=== PATIENT | female | born 1975 | race Caucasian/White ===

== ENCOUNTER 2024-10-03 21:18 | Inpatient (IN) | payer SELFPAY ==
[2024-10-03] VITALS (10 sets, daily range): BP systolic 103–131; BP diastolic 58–101; PULSE 88–120; RESP 13–24; TEMP 36.6; O2SAT 95–100; BMI 20.1
--- NOTE | 2024-10-03 21:36 | XRR_ITS ---
PROCEDURE INFORMATION: Exam: XR Chest Exam date and time: 10/03/2024 9:59 PM Age: 49 years old Clinical indication: Chest pressure; Patient HX: C/O chest pain. Afib on monitor. ; Additional info: Chest pain, a-fib TECHNIQUE: Imaging protocol: Radiologic exam of the chest. Views: 1 view. COMPARISON: No relevant prior studies available. FINDINGS: Lungs: Unremarkable. No consolidation. Likely nipple shadow in the right infrahilar distribution Pleural spaces: Unremarkable. No pleural effusion. No pneumothorax. Heart/Mediastinum: Heart appears prominent, though accentuated by patient positioning and portable technique. Vasculature: Mild atherosclerotic aortic calcifications. Bones/joints: Dextroscoliosis of the thoracic spine with multilevel degenerative changes. XR/XR chest 1V portable [id number] IMPRESSION: No acute findings.
--- NOTE | 2024-10-03 21:36 | ECG_ITS ---
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1975 Requested By: Lisa Castro Order Number: [id number] Soledad MD: DONAVON ESTEVES Measurements Intervals [place] Rate: 122 P: 0 TN: 0 QRS: 45 QRSD: 102 T: 3 QT: 309 QTc: 442 Interpretive Statements ATRIAL FIBRILLATION WITH RAPID VENTRICULAR RESPONSE MODERATE VOLTAGE CRITERIA FOR LVH, CONSIDER NORMAL VARIANT [MEETS CRITERIA IN ONE OF: R(aVL), S(V1), R(V5), R(V5/V6)+S(V1)] NONSPECIFIC T-WAVE ABNORMALITY ABNORMAL RHYTHM ECG No previous ECG available for comparison Electronically Signed On 10-05-2024 23:14:18 ETHICS MANAGER by DONAVON ESTEVES [id number]
--- NOTE | 2024-10-03 21:38 | CTR_ITS ---
PROCEDURE INFORMATION: Exam: CT Head Without Contrast Exam date and time: 10/03/2024 10:29 PM Age: 49 years old Clinical indication: Patient HX: C/O dizziness; Additional info: New onset a-fib, dizziness TECHNIQUE: Imaging protocol: Computed tomography of the head without contrast. Radiation optimization: All CT scans at this facility use at least one of these dose optimization techniques: automated exposure control; mA and/or kV adjustment per patient size (includes targeted exams where dose is matched to clinical indication); or iterative reconstruction. COMPARISON: No relevant prior studies available. RADIATION DOSE METRICS: Total DLP (mGy-cm): 980.24 FINDINGS: Brain: Likely prominent perivascular space inferior to the right basal ganglia. No hemorrhage. Unremarkable white matter. No mass effect. Cerebral ventricles: No ventriculomegaly. Paranasal sinuses: Visualized sinuses are unremarkable. No fluid levels. Mastoid air cells: Visualized mastoid air cells are well aerated. Bones: Unremarkable. No acute fracture. Soft tissues: Unremarkable. CT/CT head wo con* [id number] IMPRESSION: No acute intracranial abnormality.
--- NOTE | 2024-10-03 21:39 | ED_ITS ---
HPI - Arrhythmia/Palpitations 2 General: Chief Complaint: Arrhythmia/Palpitations Stated Complaint: AFIB Time Seen by Provider: 10/03/24 21:24 History of Present Illness: This is a 49-year-old female that presents to the emergency department with new onset atrial fibrillation RVR. In route via EMS patient was noted with heart rates in the 140s to 150s. Patient was treated with Cardizem and brought her heart rate back down to the 120s. During the emergency department patient relays a story of palpitations for the last 36 hours. She says it woke her up in the middle the night. She was having a very vivid dream that she was being sucked into the ground . Patient reports that she woke abruptly and had chest heaviness and shortness of breath. Patient reports that she was able to calm herself down and she felt like she was getting a little bit better and she decided to treat herself at home. She has been taking lisinopril for hypertension. She took an extra dose. She tried to withhold from drinking alcohol and smoking. She is an every day tobacco user as well as everyday drinker. She reports 6 glasses of wine a day. Patient recently moved from [place]. Has not established primary care as of yet. She does note being told of a murmur previously but never had it evaluated. 4 years ago she had some palpitations but never had it evaluated. Related Data Allergies Allergy/AdvReac Type Severity Reaction Status Date / Time No Known Allergies Allergy Verified 10/04/24 00:25 Review of Systems 2 General: Reports: 10 or more systems reviewed and unremarkable except in HPI and below PFSH ED 2 PFSH: Medical History Tobacco use disorder Alcohol use disorder Hypertension Surgical History History of toe surgery History of section Family History Father Valvular heart disease Social History Smoking and tobacco/nicotine status: current every day tobacco/nicotine user Alcohol intake: current Substance/Drug Use: never Physical Exam 2 Const: COMMON NORMALS: no acute distress, patient oriented x3 and alert G ENERAL APPEARANCE: cooperative ORIENTATION/CONSCIOUSNESS: Yes awake, Yes oriented to person, Yes oriented to place and Yes oriented to time HENMT: COMMON NORMALS: normocephalic and atraumatic HEAD & SCALP: n ormocephalic and atraumatic FACE & SINUS: normal facial exam MOUTH: Normal oral and palatal mucosa present THROAT: posterior oropharynx normal Eye: COMMON NORMALS: Equal, round and reactive pupils present, EOMs intact bilaterally, conjunctivae normal and no scleral icterus GENERAL EYE: a ppearance normal, both eyes and all related structures ALIGNMENT: Yes alignment normal PERIORBITAL: periorbital findings normal CONJUNCTIVA: Yes conjunctivae normal PUPIL: Yes Equal, round and reactive pupils present Neck/C-Spine: COMMON NORMALS: full ROM GENERAL: Yes normal visual inspection Lymph: LYMPHATIC: no lymphadenopathy noted Chest: COMMONS NORMALS: normal inspection of the chest Breast/axilla inspection: Yes no chest deformity, asymmetry, normal contours, no nodules, masses, tenderness Resp: COMMON NORMALS: normal respiratory effort, No retractions, No use of accessory muscles and clear to auscultation bilaterally EFFORT & INSPECTION: Yes able to speak in complete sentences and Yes symmetric chest movement A USCULTATION: clear to auscultation bilaterally Cardio: COMMON NORMALS: Peripheral pulses 2+ throughout RATE: tachycardic RHYTHM: abnormal rhythm irregularly irregular HEART SOUNDS: Murmur heart sound present continuous Location: base and left sternal border Characteristics: blowing PERIPHERAL PULSES: Peripheral pulses 2+ throughout GI: COMMON NORMALS: Normal to inspection, nondistended, normoactive bowel sounds present, Soft to palpation, non-tender and No hepatosplenomegaly present INSPECTION: Yes normal to inspection AUSCULTATION: Yes normoactive bowel sounds PALPATION: Yes Soft to palpation and Yes No hepatosplenomegaly present RECTAL EXAM: deferred Extremity: COMMON NORMALS: normal to inspection GENERAL: Yes normal exam except as noted Neuro: COMMON NORMALS: patient oriented x3 SENSORIUM/ORIENTATION: Yes alert, Yes oriented to person, Yes oriented to place and Yes oriented to time CRANIAL NERVES: Yes CN normal except as noted Psych: COMMON NORMALS: mental status grossly normal, Normal thought process present, cooperative, activity/motor behavior normal, denies homicidal ideation and denies suicidal ideation THOUGHT PROCESS: Normal thought process present Skin: COMMON NORMALS: no rashes or lesions noted, no wounds and turgor normal GENERAL SKIN EXAM: no rashes or lesions noted and turgor normal Course 2 Vital Signs: Vital signs: Vital Signs Temperature 98 F 10/03/24 21:24 Pulse Rate 128 H 10/04/24 00:00 Respiratory Rate 17 10/04/24 00:00 Blood Pressure 108/71 10/04/24 00:00 Pulse Oximetry 98 10/04/24 00:00 MDM - Arrhythmia/Palpitations Medical Decision Making Patient evaluated in the emergency department today for A-fib RVR. New onset. Exam revealed clear lung vickers but blowing murmur. She was treated in rounds and again here in the emergency department with Cardizem. She slowed her heart rate to the 110s. Heart rate began to creep back up and she was started on a Cardizem drip. Patient has an elevated BNP of 5000. When to treat her with Lasix. She underwent a laboratory evaluation that included CBC and CMP which were largely unremarkable. Chest x-ray was read as normal. EKG performed at 2125 reveals atrial fibrillation with RVR at a rate of 120. No ectopy, ST elevation. Case reviewed with Dr. Carmona. Patient has a new murmur and new onset A-fib RVR. I do not think she is capable of going home for ongoing management. I spoke with Dr. Munoz for admission. He recommended speaking with cardiology. Dr. Beebe was contacted who recommends admission overnight for echo. He will follow the echo. Recommended Lasix. Dr. Munoz notified Lab Data 10/03/24 22:12 10/03/24 22:12 Radiology Impressions Chest X-Ray 10/03/24 21:36 IMPRESSION: No acute findings. Head CT 10/03/24 21:38 IMPRESSION: No acute intracranial abnormality. Laboratory Results WBC 6.26 10^3/uL (3.29-11.43) 10/03/24 22:12 RBC 4.11 10^6/uL (3.85-5.65) 10/03/24 22:12 Hgb 13.90 g/dL (11.27-16.99) 10/03/24 22:12 Hct 42.1 % (36-47) 10/03/24 22:12 MCV 102.4 fl (85-98) H 10/03/24 22:12 MCH 33.8 pg (27-33) H 10/03/24 22:12 MCHC 33.0 g/dL (30-55) 10/03/24 22:12 RDW 12.6 % (12.1-15.1) 10/03/24 22:12 Plt Count 231 10^3/cmm (157-399) 10/03/24 22:12 MPV 10.9 fL (7.4-10.4) H 10/03/24 22:12 Neut % (Auto) 55.3 % 10/03/24 22:12 Lymph % (Auto) 30.8 % 10/03/24 22:12 Titus % (Auto) 11.7 % 10/03/24 22:12 Eos % (Auto) 1.4 % 10/03/24 22:12 Baso % (Auto) 0.6 % 10/03/24 22:12 Neut # (Auto) 3.46 10^3/uL (1.8-7.7) 10/03/24 22:12 Lymph # (Auto) 1.9 10^3/uL (0.8-4.8) 10/03/24 22:12 Titus # (Auto) 0.7 10^3/uL (0.2-0.9) 10/03/24 22:12 Eos # (Auto) 0.1 10^3/uL (0.0-0.8) 10/03/24 22:12 Baso # (Auto) 0.0 10^3/uL (0.0-0.1) 10/03/24 22:12 Nucleated RBC % (auto) 0 % 10/03/24 22:12 Nucleated RBCs # 0.0 /100WBC 10/03/24 22:12 Sodium 135 mmol/L (136-145) L 10/03/24 22:12 Potassium 4.1 mmol/L (3.5-5.1) 10/03/24 22:12 Chloride 100 mmol/L (98-107) 10/03/24 22:12 Carbon Dioxide 21 mmol/L (22-29) L 10/03/24 22:12 Anion Gap 18.1 (5-19) 10/03/24 22:12 BUN 19 mg/dL (6-20) 10/03/24 22:12 Creatinine 0.8 mg/dL (0.5-0.9) 10/03/24 22:12 GFR Calculation 75.9 mL/min (90-130) L 10/03/24 22:12 Glucose 99 mg/dL (65-115) 10/03/24 22:12 Calculated Osmolality 282 mOsm/kg (285-295) L 10/03/24 22:12 Calcium 9.5 mg/dL (8.5-10.5) 10/03/24 22:12 Magnesium 1.9 mg/dL (1.7-2.3) 10/03/24 22:12 Total Bilirubin 0.2 mg/dL (0.15-1.2) 10/03/24 22:12 AST 20 U/L (0-32) 10/03/24 22:12 ALT 13 U/L (0-33) 10/03/24 22:12 Alkaline Phosphatase 78 U/L (35-105) 10/03/24 22:12 Troponin T Baseline 9 ng/L (0-10) 10/03/24 22:12 NT-Pro-B Natriuret Pep 4665 pg/mL (0-125) H 10/03/24 22:12 Total Protein 6.7 g/dL (6.6-8.7) 10/03/24 22:12 Albumin 4.4 g/dL (3.5-5.2) 10/03/24 22:12 Globulin 2.3 g/dL (1.3-4.6) 10/03/24 22:12 Ethyl Alcohol < 10 mg/dL (0-10) 10/03/24 22:12 All radiology interpretation(s) finalized by discharge Discharge Plan Discharge Patient Disposition: Admitted As Inpatient Clinical Impression: Atrial fibrillation, Cardiac murmur, Heart failure Condition: Stable Coding Level of Care Code ED Hat Finishing Materials Preparer for Amber Tucker
[2024-10-03] MEDS: dilTIAZem 5 mg/mL SDV 5 mL 10 MG IVP (21:51)
[2024-10-03] MEDS: sodium chloride 0.9% 500 ML 999 ML IV (21:52)
[2024-10-03 22:19] LABS: Basophils % 0.6 %; Eosinophils # 0.1 10^3/uL (0.0-0.8); Eosinophils % 1.4 %; Hematocrit 42.1 % (36-47); Lymphocytes # 1.9 10^3/uL (0.8-4.8); Lymphocytes % 30.8 %; Mean Corpuscular Hemoglobin 33.8 pg (27-33); Mean Corpuscular Volume 102.4 fl (85-98); Mean Platelet Volume 10.9 fL (7.4-10.4); Monocytes # 0.7 10^3/uL (0.2-0.9); Monocytes % 11.7 %; Neutrophils # 3.46 10^3/uL (1.8-7.7); Neutrophils % 55.3 %; Nucleated Red Blood Cells % 0 %; Platelet Count 231 10^3/cmm (157-399); Red Blood Count 4.11 10^6/uL (3.85-5.65); Red Cell Distribution Width 12.6 % (12.1-15.1); White Blood Count 6.26 10^3/uL (3.29-11.43)
[2024-10-03 22:39] LABS: Troponin(5th) Baseline 9 ng/L (0-10)
[2024-10-03 23:06] LABS: Alanine Aminotransferase 13 U/L (0-33); Albumin Level 4.4 g/dL (3.5-5.2); Alcohol Level < 10 mg/dL (0-10); Alkaline Phosphatase 78 U/L (35-105); Anion Gap 18.1 (5-19); Aspartate Amino Transferase 20 U/L (0-32); Blood Urea Nitrogen 19 mg/dL (6-20); Calcium 9.5 mg/dL (8.5-10.5); Carbon Dioxide 21 mmol/L (22-29); Chloride 100 mmol/L (98-107); Creatinine Clr Calc Pharmacy 66.4302; Globulin 2.3 g/dL (1.3-4.6); Glomerular Filtration Rate 75.9 mL/min (90-130); Glucose 99 mg/dL (65-115); NT Pro B Type Natriuretic Pept 4665 pg/mL (0-125); Osmolality Calculated 282 mOsm/kg (285-295); Potassium 4.1 mmol/L (3.5-5.1); Sodium 135 mmol/L (136-145); Total Bilirubin 0.2 mg/dL (0.15-1.2); Total Protein 6.7 g/dL (6.6-8.7)
--- NOTE | 2024-10-03 23:54 | P.HP_ITS ---
Providers/Chief Complaint 2 Chief Complaint: AFIB History of Present Illness Nona Casas is a 49 year old female with a past medical history significant for hypertension, cardiac murmur, COVID-19, and arthritis who presents to the emergency department with palpitations. Patient reports onset yesterday. She describes her symptoms as constant. Endorses associated shortness of breath. Denies cough, peripheral edema, PND or orthopnea. Reports exertion worsens symptoms. Denies other alleviating or aggravating factors. Denies fevers, chills, nausea or emesis. In the emergency department, patient was found to have atrial fibrillation with left ventricular rate. She denies prior known history of atrial fibrillation. She does endorse intermittent palpitations since her COVID-19 infection in 2020. She also endorses a history of murmur but denies prior workup. She does endorse her father having mitral valvulopathies requiring at least 2 interventions on his valve. He is now , he at age 71. Of note, patient also endorses significant alcohol use. We discussed alcohol effects on atrial fibrillation. Review of Systems 2 Narrative: A complete review of systems was obtained and is negative except as stated in HPI. PFSH Acute 2 PFSH: Medical History Tobacco use disorder Alcohol use disorder Hypertension Surgical History History of toe surgery History of section Family History Father Valvular heart disease Social History Smoking and tobacco/nicotine status: current every day tobacco/nicotine user Alcohol intake: current Substance/Drug Use: never Vitals/I&O/Wt Last Vital Signs Temp 98 F 10/03/24 21:24 Pulse 94 10/03/24 22:45 Resp 16 10/03/24 22:45 BP 120/63 10/03/24 22:45 Pulse Ox 97 10/03/24 22:45 10/03/24 10/03/24 10/04/24 14:59 22:59 06:59 Intake Total 0 / 0 Balance 0 / 0 Weight last 48 hrs Weight 49.895 kg Physical Exam 2 Narrative: General: Patient is awake and alert. Pleasant. Head: Normocephalic. Atraumatic. EOM intact. Neck: No JVD. Cardiovascular: No gallops. 3+ murmur. Tachycardic with irregularly irregular rhythm. Lungs: Clear to auscultation, no use of accessory muscles, no crackles or wheezes. Skin: No jaundice. No rashes. Abdomen: Normal bowel sounds, abdomen soft and nontender. Genito Urinary: Genital exam not performed since complaints not related. Rectal: Rectal exam not performed since no symptoms indicated blood loss. Extremities: No cyanosis or clubbing. Musculoskeletal: No swollen or erythematous joints. Neurological: Moves all 4 extremities. No myoclonus. Data 10/03/24 22:12 10/03/24 22:12 A&P Assessment and plan (1) Atrial fibrillation: Paroxysmal atrial fibrillation with rapid ventricular rate, newly diagnosed Start Cardizem drip Therapeutic Lovenox Complete echocardiogram Continuous telemetry monitoring Check thyroid function Check magnesium (2) Cardiac murmur: Complete echocardiogram (3) Hypertension: Hold lisinopril to allow blood pressure room for Cardizem (4) Alcohol use disorder: Patient benefit from alcohol cessation Discussed alcohol effects of atrial fibrillation [facility] protocol Thiamine, folic acid, multivitamin (5) Tobacco use disorder: Smoking cessation discussed for 4 minutes, declined nicotine replacement treatment Plan DVT prophylaxis: Lovenox CODE STATUS: Full code Attestations 2 Medical Necessity Statement*: Patient presents with palpitations, found to have newly diagnosed atrial fibrillation with backup ventricular rate with expected hospitalization not to cross 2 midnights for management atrial fibrillation, echocardiogram, and supportive care. Coding Level of Care Code Acute Code for [facility] Fwd Diagnoses Atrial fibrillation I48.91 Cardiac murmur R01.1 Hypertension I10 Alcohol use disorder F10.90 Tobacco use disorder F17.200
[2024-10-04] VITALS (67 sets, daily range): BP systolic 80–125; BP diastolic 46–94; PULSE 85–130; RESP 7–27; TEMP 36.9–37.2; O2SAT 94–100; BMI 20.1
[2024-10-04] MEDS: FUROsemide 10 mg/mL SDV 4mL 40 MG IVP ×2 (00:11→14:11)
[2024-10-04 00:55] LABS: Magnesium 1.9 mg/dL (1.7-2.3)
[2024-10-04 00:58] LABS: Troponin 5 2HR Delta 0 ABS# (0-10)
[2024-10-04] MEDS: dilTIAZem 100 MG in sodium chloride 0.9% (add-van) 100 ML IV (02:07)
[2024-10-04 02:26] LABS: Bilirubin Urine Negative (Negative); Blood Urine Negative (Negative); Glucose Urine UA Negative (Normal); Ketones Urine Negative (Negative); Leukocyte Esterase Urine 1+ (Negative); Nitrate Urine Negative (Negative); Protein Urine Negative (Negative); Specific Gravity, Urine 1.009 (1.005-1.030); Urine Appearance Clear (CLEAR); Urine Color Yellow (Yellow); Urobilinogen Urine 0.2 mg/dL (Negative); pH Urine 6.5 (5-7)
[2024-10-04 02:31] LABS: Add Urine Microscopic? YES; Bacteria Urine None Seen /hpf; RBC Urine 0-2 /hpf (0-2); Squamous Epithelial Cell Urine 0-5 /hpf (0-5); WBC Urine 0-5 /hpf (0-5)
[2024-10-04] MEDS: enoxaparin 60 mg/0.6 mL Syringe 50 MG SUBCUT ×2 (02:54→14:11)
[2024-10-04 06:32] LABS: Troponin 5 6HR 11.06 ng/L (0-10); Troponin 5 6HR Delta 2.06 ng/L (0-12)
--- NOTE | 2024-10-04 06:40 | ECG_ITS ---
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1975 Requested By: Lisa Castro Order Number: [id number] Reading MD: DONAVON ESTEVES Measurements Intervals [place] Rate: 97 P: 0 ND: 0 QRS: 43 QRSD: 96 T: 21 QT: 363 QTc: 463 Interpretive Statements ATRIAL FIBRILLATION MINIMAL VOLTAGE CRITERIA FOR LVH, CONSIDER NORMAL VARIANT [MEETS CRITERIA IN ONE OF: R(aVL), S(V1), R(V5), R(V5/V6)+S(V1)] ABNORMAL RHYTHM ECG Compared to ECG 10/03/2024 21:26:56 T-wave abnormality no longer present Electronically Signed On 10-05-2024 23:21:09 AMBULATORY NURSE by DONAVON ESTEVES [id number]
--- NOTE | 2024-10-04 07:49 | PC.PHAR ---
patient new to the area and states she only gets one medication and its lisinopril
[2024-10-04] MEDS: folic acid 1 mg Tablet PO (08:53)
[2024-10-04] MEDS: thiamine 100 mg Tablet PO (08:53)
[2024-10-04] MEDS: multivitamin therapeutic Tablet 1 TAB PO (08:53)
--- NOTE | 2024-10-04 11:03 | PC.NURSE ---
Provider updated on heart rate and soft blood pressures. Provider stopped cardizem drip and start Amio drip with bolus.
[2024-10-04] MEDS: amiodarone 150 MG/100 ML PREMIX 400 MG IV (11:22)
--- NOTE | 2024-10-04 13:52 | P.PN_ITS ---
Subjective 2 Subjective: seen this am no acute events overnight still in afib, rate uncontrolled discussed with pt regarding AC and switching to amio Vitals/I&O/Wt Last Vital Signs Temp 98.5 F 10/04/24 12:00 Pulse 123 H 10/04/24 12:00 Resp 19 H 10/04/24 12:00 BP 112/79 10/04/24 12:00 Pulse Ox 99 10/04/24 12:00 O2 Del Method Room Air 10/04/24 12:00 10/03/24 10/04/24 10/04/24 22:59 06:59 14:59 Intake Total 0 / 0 740 / 740 381.292 / 381.292 Output Total 201 / 201 Balance 0 / 0 539 / 539 381.292 / 381.292 Weight last 48 hrs Weight 51.075 kg Weight 50.037 kg Weight 54.114 kg Weight 49.895 kg Physical Exam 2 Narrative: General: Patient is awake and alert. Pleasant. Head: Normocephalic. Atraumatic. EOM intact. Cardiovascular: No gallops. 3+ murmur. Tachycardic with irregularly irregular rhythm. Lungs: Clear to auscultation, no use of accessory muscles, no crackles or wheezes. Abdomen: Normal bowel sounds, abdomen soft and nontender. Extremities: No cyanosis or clubbing. Musculoskeletal: No swollen or erythematous joints. Neurological: Moves all 4 extremities. No myoclonus. Data 10/03/24 22:12 10/03/24 22:12 A&P Assessment and plan (1) Atrial fibrillation: Paroxysmal atrial fibrillation with rapid ventricular rate, newly diagnosed Start Cardizem drip Therapeutic Lovenox Complete echocardiogram Continuous telemetry monitoring Check thyroid function Check magnesium (2) Cardiac murmur: Complete echocardiogram (3) Hypertension: Hold lisinopril to allow blood pressure room for Cardizem (4) Alcohol use disorder: Patient benefit from alcohol cessation Discussed alcohol effects of atrial fibrillation [facility] protocol Thiamine, folic acid, multivitamin (5) Tobacco use disorder: Smoking cessation discussed for 4 minutes, declined nicotine replacement treatment Plan DVT prophylaxis: Lovenox CODE STATUS: Full code 10/04/2024 stop cardizem drip start amio bolus, and start amio gtt continue therapeutic lovenox tsh 3.[address] on lasix 40 iv daily. pt did get 1 lasix yesterday check echo Attestations 2 Medical Necessity Statement*: newly diagnosed afib, needs workup and management, still in afib Diagnoses Atrial fibrillation I48.91 Cardiac murmur R01.1 Hypertension I10 Alcohol use disorder F10.90 Tobacco use disorder F17.200
[2024-10-05] VITALS (9 sets, daily range): BP systolic 103–134; BP diastolic 60–91; PULSE 75–124; RESP 16–25; TEMP 36.7–37.1; O2SAT 97–100
--- NOTE | 2024-10-05 00:27 | USCV_ITS ---
Nona Casas Age: 49 Gender: F : 1975 Exam Date: 10/05/2024 14:35 Ordering Phys: Ayden Munoz MD Technologist: CT Exam Location: [facility] [place]_ Indication: murmur BP: 129 / 67 HR: 80 Rhythm: Sinus Technical Quality: Adequate MEASUREMENTS (Male / Female) Normal Values 2D ECHO LVOT Diameter 2.0 cm LV Ejection Fraction MOD 4C 64.1 % LV Ejection Fraction MOD 2C 78.5 % LV Ejection Fraction 2C AL 59.1 % LA Diameter 5.4 cm RA Systolic Volume 4C AL 28.3 ml RA Systolic Volume 4C MOD 27.6 ml LA Sys Volume AL 185.6 cm cubed LA Sys Volume Index AL 125.7 cm cubed/m squared Aorta at Sinotubular Diameter 2.3 cm IVC Diameter 1.5 cm M-MODE LA Ao Ratio MM 2.1 AV Cusp Separation MM 2.2 cm DOPPLER AV Peak Velocity 110.0 cm/s LVOT Peak Velocity 107.0 cm/s AV Area Cont Eq vti 3.0 cm squared AV Area Cont Eq pk 3.1 cm squared MV Peak Velocity 203.0 cm/s MV Area PHT 4.9 cm squared Mitral E to A Ratio 3.7 TV Peak Velocity 378.6 cm/s TR Peak Velocity 416.5 cm/s TR Peak Gradient 69.4 mmHg TR Mean Velocity 306.0 cm/s TR Mean Gradient 42.3 mmHg TR Velocity Time Integral 122.5 cm TV Peak E Velocity 75.0 cm/s PV Peak Velocity 67.0 cm/s FINDINGS Left Ventricle Normal left ventricular cavity size. Normal left ventricular systolic function. Left ventricular ejection fraction is estimated at 60 %. Grade IV/IV diastolic dysfunction (irreversible restrictive filling pattern), severely elevated filling pressures. Right Ventricle The right ventricle is normal in size and function. Right Atrium The right atrium is normal in size. Left Atrium Moderately increased left atrial size. Mitral Valve Moderate prolapse of the posterior mitral valve leaflet. Severe mitral valve regurgitation. Jet is anteriorly directed. Aortic Valve Aortic valve sclerosis. No aortic valve stenosis. Trace aortic valve regurgitation. Tricuspid Valve Moderate tricuspid valve regurgitation. Pulmonic Valve Trace pulmonary valve regurgitation. Pericardium Normal pericardium without effusion. Aorta Normal ascending aorta dimension. IVC The inferior vena cava appears normal. CONCLUSIONS Normal left ventricular cavity size. Normal left ventricular systolic function. Left ventricular ejection fraction is estimated at 60 %. Grade IV/IV diastolic dysfunction (irreversible restrictive filling pattern), severely elevated filling pressures. Moderately increased left atrial size. Moderate prolapse of the posterior mitral valve leaflet. Severe mitral valve regurgitation. Jet is anteriorly directed. Aortic valve sclerosis. No aortic valve stenosis. Trace aortic valve regurgitation. Moderate tricuspid valve regurgitation. Right atrial pressure is around 5 mm of mercury. Moises Beebe MD (Electronically Signed) Final Date: 05 October 2024 22:20 S
[2024-10-05] MEDS: enoxaparin 60 mg/0.6 mL Syringe 50 MG SUBCUT ×2 (03:24→14:39)
[2024-10-05 05:47] LABS: Basophils # 0.1 10^3/uL (0.0-0.1); Eosinophils # 0.1 10^3/uL (0.0-0.8); Eosinophils % 2.3 %; Hematocrit 42.1 % (36-47); Lymphocytes # 1.9 10^3/uL (0.8-4.8); Lymphocytes % 36.8 %; Mean Corpuscular Volume 102.9 fl (85-98); Mean Platelet Volume 11.4 fL (7.4-10.4); Monocytes # 0.6 10^3/uL (0.2-0.9); Monocytes % 11.2 %; Neutrophils % 48.5 %; Nucleated Red Blood Cells % 0 %; Platelet Count 231 10^3/cmm (157-399); Red Blood Count 4.09 10^6/uL (3.85-5.65); Red Cell Distribution Width 12.7 % (12.1-15.1); White Blood Count 5.16 10^3/uL (3.29-11.43)
[2024-10-05 06:05] LABS: Anion Gap 14.5 (5-19); Blood Urea Nitrogen 18 mg/dL (6-20); Calcium 9.7 mg/dL (8.5-10.5); Carbon Dioxide 26 mmol/L (22-29); Chloride 100 mmol/L (98-107); Creatinine Clr Calc Pharmacy 66.2857; Glomerular Filtration Rate 75.9 mL/min (90-130); Glucose 105 mg/dL (65-115); Magnesium 1.8 mg/dL (1.7-2.3); Osmolality Calculated 286 mOsm/kg (285-295); Phosphorus 3.9 mg/dL (2.5-4.5); Potassium 3.5 mmol/L (3.5-5.1); Sodium 137 mmol/L (136-145)
[2024-10-05] MEDS: thiamine 100 mg Tablet PO (08:59)
[2024-10-05] MEDS: folic acid 1 mg Tablet PO (08:59)
[2024-10-05] MEDS: multivitamin therapeutic Tablet 1 TAB PO (08:59)
--- NOTE | 2024-10-05 09:13 | PC.CHAP ---
Pastoral Care Encounter/Spiritual Assessment Type of Contact [] Declined import/export clerk visit [] Patient/Family/Request visit [] Outpatient visit [] Follow-up visit [] Physician referral [] Code/Alert [x] Routine visit [] Staff referral [] Actively dying [] Patient sleeping [] Family support [] [] Out of room [] Palliative care [] [] Receiving care in room [] Pre-surgical visit [] Trauma [] Long length of stay [] ICU visit [] Other: Relational/Emotional Strength [] Patient feels connected with others/family/visitors/staff [] Distress [] Loneliness/isolation [] Abandonment Spirituality of Patient [x] Person of Shania [] Attends Mu-Ism of their Shania [x] Believes in Prayer [] Reads Bible or Faith materials [] There are Spiritual issues to be addressed Meteorologist In Charge Interventions [x] Prayer [x] Active listening [] Non-anxious presence [] Spiritual/emotional support [] Crisis/trauma care [] Spiritual counseling [] Bereavement support [] Provided bereavement packet [x] Provided Bible/devotional materials [] Provided toy/stuffed animal, coloring book to patient or family member [] Provided Communion [] Anointing/[place] [] Salvation [x] Completed spiritual assessment [] Other: Impact on Illness or Injury [] Angry [] Fearful [] Anxious [] Often cries [] Exhaustion [] Unable to work [] Unable to attend oriental orthodox [] Unable to walk/stand [] Unable to read [] Unable to drive [] Unable to eat/drink [] Unable to sleep [] Unable to be with family [] Patient intubated [] Other: Summary Time spent with patient 10 min
[2024-10-05] MEDS: digoxin 250 mcg/ml INJ 2 mL IVP (09:56)
--- NOTE | 2024-10-05 14:11 | PM.PN ---
Subjective Subjective: Patient was seen and examined at 10 AM today. At the time her heart rate was running in the 130s. A-fib with RVR. Review of chart shows that patient has been running A-fib RVR with heart rate between 102 to 135 during the course of her admission here. She is complaining of palpitations but denies any chest pain. States he feels a little winded with exertion but not at rest. She is currently on room air. Vitals/I&O/Wt Last Vital Signs Temp 98.6 F 10/05/24 12:00 Pulse 80 10/05/24 12:00 Resp 18 10/05/24 12:00 BP 124/91 10/05/24 12:00 Pulse Ox 99 10/05/24 12:00 O2 Del Method Room Air 10/05/24 12:00 10/04/24 10/05/24 10/05/24 22:59 06:59 14:59 Intake Total 314.425 / 695.717 185.037 / 880.754 120 / 120 Output Total 850 / 850 Balance -535.575 / -154.283 185.037 / 30.754 120 / 120 Weight last 48 hrs Weight 49.623 kg Weight 51.075 kg Weight 50.037 kg Weight 54.114 kg Weight 49.895 kg Physical Exam Narrative: General: No acute distress, AO x3 HEENT: PERRLA, pupils bilaterally equal and reactive, pallors not present Chest: Normal vesicular breath sounds, no added sounds, equal good air entry bilaterally CVS: S1-S2 regular, no murmurs, no tachycardia, no gallops, no rubs Abdomen: Soft, nontender, no organomegaly, bowel sounds present Neuro: No focal deficits, no facial deformity, AO x3, power 5/5 in all limbs Data 10/05/24 05:12 10/05/24 05:12 A&P Assessment and plan (1) Atrial fibrillation: Paroxysmal atrial fibrillation with rapid ventricular rate, newly diagnosed Start Cardizem drip Therapeutic Lovenox Complete echocardiogram Continuous telemetry monitoring Check thyroid function Check magnesium (2) Cardiac murmur: Complete echocardiogram (3) Hypertension: Hold lisinopril to allow blood pressure room for Cardizem (4) Alcohol use disorder: Patient benefit from alcohol cessation Discussed alcohol effects of atrial fibrillation [facility] protocol Thiamine, folic acid, multivitamin (5) Tobacco use disorder: Smoking cessation discussed for 4 minutes, declined nicotine replacement treatment Plan DVT prophylaxis: Lovenox CODE STATUS: Full code 10/04/2024 stop cardizem drip start amio bolus, and start amio gtt continue therapeutic lovenox tsh 3.[address] on lasix 40 iv daily. pt did get 1 lasix yesterday check echo October 05, 2024 Patient was taken off of Cardizem drip yesterday as her blood pressure dropped to 80/63. Thereafter she was started on amiodarone drip at around 10 AM yesterday. However she has continued to be in A-fib RVR with heart rate currently ranging in the 130s. She is complaining of palpitations but denies any dyspnea at this time. Due to her low blood pressure, unable to add any calcium channel blockers or beta-blockers. Consult cardiology, assess for possible LATOYA cardioversion given new diagnosis of A-fib. Patient is on anticoagulation with Lovenox 50 mg every 12 hours. Patient has had a breakfast this morning therefore unlikely that cardioversion will be able to performed today. In the interim we will start digoxin 250 mg IV loading dose followed by 62.5 mg IV in 6 hours, followed by 62.5 mg IV 12 hours after the first dose. Echocardiogram is pending at this time. Attestations Medical Necessity Statement*: change to inpatient admission Coding Level of Care Code Acute Code for Chg Fwd High MDM includes number and complexity of problems actively addressed during encounter, amount and/or complexity of data reviewed/ordered and described risk of complication, morbidity or mortality of management as documented Diagnoses Atrial fibrillation I48.91 Cardiac murmur R01.1 Hypertension I10 Alcohol use disorder F10.90 Tobacco use disorder F17.200
[2024-10-05] MEDS: digoxin 250 mcg/ml INJ 2 mL 62.5 MCG IVP (14:41)
[2024-10-05] MEDS: amiodarone 200 mg Tablet PO (16:38)
[2024-10-05] MEDS: digoxin 250 mcg/ml INJ 2 mL 125 MCG IVP (21:07)
[2024-10-06] MEDS: enoxaparin 60 mg/0.6 mL Syringe 50 MG SUBCUT (02:20)
[2024-10-06 04:00] VITALS: BP 119/75; PULSE 69; RESP 19; TEMP 36.4; O2SAT 98
[2024-10-06 04:50] LABS: Basophils # 0.1 10^3/uL (0.0-0.1); Eosinophils # 0.2 10^3/uL (0.0-0.8); Eosinophils % 3.4 %; Hematocrit 36.4 % (36-47); Lymphocytes # 1.6 10^3/uL (0.8-4.8); Lymphocytes % 32.7 %; Mean Corpuscular Hemoglobin 34.3 pg (27-33); Mean Platelet Volume 11.8 fL (7.4-10.4); Monocytes # 0.6 10^3/uL (0.2-0.9); Monocytes % 12.2 %; Neutrophils # 2.53 10^3/uL (1.8-7.7); Neutrophils % 50.5 %; Nucleated Red Blood Cells % 0 %; Platelet Count 197 10^3/cmm (157-399); Red Cell Distribution Width 12.7 % (12.1-15.1); White Blood Count 5.01 10^3/uL (3.29-11.43)
[2024-10-06 05:14] LABS: Digoxin 1.4 ng/mL (0.6-1.2)
[2024-10-06 05:20] LABS: Alanine Aminotransferase 12 U/L (0-33); Albumin Level 3.9 g/dL (3.5-5.2); Alkaline Phosphatase 59 U/L (35-105); Anion Gap 15.3 (5-19); Aspartate Amino Transferase 22 U/L (0-32); Blood Urea Nitrogen 18 mg/dL (6-20); Calcium 9.4 mg/dL (8.5-10.5); Carbon Dioxide 25 mmol/L (22-29); Chloride 102 mmol/L (98-107); Globulin 1.9 g/dL (1.3-4.6); Glomerular Filtration Rate 88.6 mL/min (90-130); Glucose 87 mg/dL (65-115); Osmolality Calculated 287 mOsm/kg (285-295); Potassium 4.3 mmol/L (3.5-5.1); Sodium 138 mmol/L (136-145); Total Bilirubin 0.3 mg/dL (0.15-1.2); Total Protein 5.8 g/dL (6.6-8.7)
[2024-10-06 06:59] VITALS: BP 113/70; PULSE 71; RESP 20; TEMP 36.9; O2SAT 99
[2024-10-06] MEDS: folic acid 1 mg Tablet PO (08:26)
[2024-10-06] MEDS: multivitamin therapeutic Tablet 1 TAB PO (08:26)
[2024-10-06] MEDS: amiodarone 200 mg Tablet PO (08:26)
[2024-10-06] MEDS: thiamine 100 mg Tablet PO (08:26)
--- NOTE | 2024-10-06 10:01 | PC.CHAP ---
Pastoral Care Encounter/Spiritual Assessment Type of Contact [] Declined herbologist visit [] Patient/Family/Request visit [] Outpatient visit [] Follow-up visit [] Physician referral [] Code/Alert [x] Routine visit [] Staff referral [] Actively dying [] Patient sleeping [] Family support [] [] Out of room [] Palliative care [] [x] Receiving care in room [] Pre-surgical visit [] Trauma [] Long length of stay [] ICU visit [] Other: Relational/Emotional Strength [x] Patient feels connected with others/family/visitors/staff [] Distress [] Loneliness/isolation [] Abandonment Spirituality of Patient [x] Person of Shania [] Attends Buddhist of their Shania [x] Believes in Prayer [] Reads Bible or Catholic materials [] There are Spiritual issues to be addressed [employer]ed Services Analyst Interventions [x] Prayer [x] Active listening [] Non-anxious presence [x] Spiritual/emotional support [] Crisis/trauma care [] Spiritual counseling [] Bereavement support [] Provided bereavement packet [] Provided Bible/devotional materials [] Provided toy/stuffed animal, coloring book to patient or family member [] Provided Communion [] Anointing/[place] [] Salvation [x] Completed spiritual assessment [] Other: Impact on Illness or Injury [] Angry [] Fearful [] Anxious [] Often cries [] Exhaustion [] Unable to work [] Unable to attend jainism [] Unable to walk/stand [] Unable to read [] Unable to drive [] Unable to eat/drink [] Unable to sleep [] Unable to be with family [] Patient intubated [] Other: Summary Time spent with patient 5 min
[2024-10-06] MEDS: metoprolol succinate ER (24 HR) 25 mg Tablet 12.5 MG PO (10:08)
--- NOTE | 2024-10-06 10:40 | PC.NURSE ---
Patient declined 21 event monitor at this time due to having no insurance at this time. Patient offered payment plan for device, patient decline that option as well at this time.
--- NOTE | 2024-10-06 10:55 | PC.NURSE ---
Patient has requested meds to beds, Pharmacy has been notified to bring her medications.
[2024-10-06 10:57] VITALS: BP 120/71; PULSE 77; RESP 17; TEMP 36.7; O2SAT 100
[2024-10-06 11:42] VITALS: BP 120/71; PULSE 77; RESP 17; TEMP 36.7; O2SAT 100
--- NOTE | 2024-10-06 11:42 | PM.DCS ---
Discharge Providers Date of Admission: 10/05/24 10:14 Date of Discharge: October 06, 2024 Attending Provider at Admission: Ayden Munoz MD Attending Provider at Discharge: Gwen Zarate MD Diagnoses at Discharge Discharge Diagnosis (1) Atrial fibrillation: Status: Acute (2) Cardiac murmur: Status: Acute (3) Hypertension: Status: Acute (4) Alcohol use disorder: Status: Acute (5) Tobacco use disorder: Status: Acute (6) Heart failure: Status: Acute (7) Smoking addiction: Status: Acute (8) Alcohol use: Status: Acute Reason for Visit Reason for Visit: AFIB Hospital Course Hospital Course Patient is a 49-year-old lady with a past medical history of hypertension, who presented to the hospital on October 03, 2024 with complaints of palpitations. She was found to be in A-fib with RVR with heart rate in the 150s and 160s. She was initially started on a Cardizem infusion, however this was complicated by hypotension. Thereafter she was switched to amiodarone. After being on amiodarone for about 24 hours she continued to be in persistent A-fib, digoxin was added at this point. She received digoxin loading on October 05, 2023. She converted into sinus rhythm on October 05, 2023. She is being discharged today with recommendations to continue amiodarone 200 mg p.o. twice daily and metoprolol extended release 25 mg p.o. daily has been added. Echocardiogram was obtained which shows moderate mitral valve prolapse with grade 4 diastolic dysfunction. She will likely need surgical repair for the same down the line. She had evidence of acute diastolic heart failure for which she received Lasix IV on day 1 and day 2. Patient is clinically euvolemic at discharge. Lasix 20 mg p.o. daily is recommended. Additionally she has been started on anticoagulation with Eliquis 5 mg twice daily for stroke prevention. Event monitor was attempted to be arranged at discharge, however patient has refused for now due to affordability. Recommended follow-up with cardiology in 7 to 10 days. Alcohol use cessation and nicotine cessation counseling provided. Physical Exam Narrative: General: No acute distress, AO x3 HEENT: PERRLA, pupils bilaterally equal and reactive, pallors not present Chest: Normal vesicular breath sounds, no added sounds, equal good air entry bilaterally CVS: S1-S2 regular, no murmurs, no tachycardia, no gallops, no rubs Abdomen: Soft, nontender, no organomegaly, bowel sounds present Neuro: No focal deficits, no facial deformity, AO x3, power 5/5 in all limbs Discharge Data Studies Completed and Pending Completed Studies During Hospitalization Category Date Time Status CT head wo con* [id number] Stat Cat Scan 10/03/24 21:38 Completed XR chest 1V portable [id number] Stat Exams 10/03/24 21:36 Completed CV. echo complete* [id number] Stat Ultrasound 10/05/24 00:27 Completed Radiology Impressions Chest X-Ray 10/03/24 21:36 IMPRESSION: No acute findings. Head CT 10/03/24 21:38 IMPRESSION: No acute intracranial abnormality. Laboratory Results WBC 5.01 10^3/uL (3.29-11.43) 10/06/24 03:53 RBC 3.50 10^6/uL (3.85-5.65) L 10/06/24 03:53 Hgb 12.00 g/dL (11.27-16.99) 10/06/24 03:53 Hct 36.4 % (36-47) 10/06/24 03:53 MCV 104.0 fl (85-98) H 10/06/24 03:53 MCH 34.3 pg (27-33) H 10/06/24 03:53 MCHC 33.0 g/dL (30-55) 10/06/24 03:53 RDW 12.7 % (12.1-15.1) 10/06/24 03:53 Plt Count 197 10^3/cmm (157-399) 10/06/24 03:53 MPV 11.8 fL (7.4-10.4) H 10/06/24 03:53 Neut % (Auto) 50.5 % 10/06/24 03:53 Lymph % (Auto) 32.7 % 10/06/24 03:53 [place] % (Auto) 12.2 % 10/06/24 03:53 Eos % (Auto) 3.4 % 10/06/24 03:53 Baso % (Auto) 1.0 % 10/06/24 03:53 Neut # (Auto) 2.53 10^3/uL (1.8-7.7) 10/06/24 03:53 Lymph # (Auto) 1.6 10^3/uL (0.8-4.8) 10/06/24 03:53 [place] # (Auto) 0.6 10^3/uL (0.2-0.9) 10/06/24 03:53 Eos # (Auto) 0.2 10^3/uL (0.0-0.8) 10/06/24 03:53 Baso # (Auto) 0.1 10^3/uL (0.0-0.1) 10/06/24 03:53 Nucleated RBC % (auto) 0 % 10/06/24 03:53 Nucleated RBCs # 0.0 /100WBC 10/06/24 03:53 Sodium 138 mmol/L (136-145) 10/06/24 03:53 Potassium 4.3 mmol/L (3.5-5.1) 10/06/24 03:53 Chloride 102 mmol/L (98-107) 10/06/24 03:53 Carbon Dioxide 25 mmol/L (22-29) 10/06/24 03:53 Anion Gap 15.3 (5-19) 10/06/24 03:53 BUN 18 mg/dL (6-20) 10/06/24 03:53 Creatinine 0.7 mg/dL (0.5-0.9) 10/06/24 03:53 GFR Calculation 88.6 mL/min (90-130) L 10/06/24 03:53 Glucose 87 mg/dL (65-115) 10/06/24 03:53 Calculated Osmolality 287 mOsm/kg (285-295) 10/06/24 03:53 Calcium 9.4 mg/dL (8.5-10.5) 10/06/24 03:53 Phosphorus 3.9 mg/dL (2.5-4.5) 10/05/24 05:12 Magnesium 1.8 mg/dL (1.7-2.3) 10/05/24 05:12 Total Bilirubin 0.3 mg/dL (0.15-1.2) 10/06/24 03:53 AST 22 U/L (0-32) 10/06/24 03:53 ALT 12 U/L (0-33) 10/06/24 03:53 Alkaline Phosphatase 59 U/L (35-105) 10/06/24 03:53 Troponin T Baseline 9 ng/L (0-10) 10/03/24 22:12 Troponin T 120 Minute 9.00 ng/L (0-10) 10/04/24 00:12 Delta Troponin T 0 ABS# (0-10) 10/04/24 00:12 Troponin T Hi Sens 6Hr 11.06 ng/L (0-10) H 10/04/24 05:25 Troponin T Hi Sens 6Hr Delta 2.06 ng/L (0-12) 10/04/24 05:25 NT-Pro-B Natriuret Pep 4665 pg/mL (0-125) H 10/03/24 22:12 Total Protein 5.8 g/dL (6.6-8.7) L 10/06/24 03:53 Albumin 3.9 g/dL (3.5-5.2) 10/06/24 03:53 Globulin 1.9 g/dL (1.3-4.6) 10/06/24 03:53 TSH 3.80 uIU/mL (0.27-4.20) 10/04/24 00:12 Urine Color Yellow (Yellow) 10/04/24 01:05 Urine Appearance Clear (CLEAR) 10/04/24 01:05 Urine pH 6.5 (5-7) 10/04/24 01:05 Ur Specific [place] 1.009 (1.005-1.030) 10/04/24 01:05 Urine Protein Negative (Negative) 10/04/24 01:05 Urine Glucose (UA) Negative (Normal) 10/04/24 01:05 Urine Ketones Negative (Negative) 10/04/24 01:05 Urine Blood Negative (Negative) 10/04/24 01:05 Urine Nitrate Negative (Negative) 10/04/24 01:05 Urine Bilirubin Negative (Negative) 10/04/24 01:05 Urine Urobilinogen 0.2 mg/dL (Negative) 10/04/24 01:05 Ur Leukocyte Esterase 1+ (Negative) A 10/04/24 01:05 Urine RBC 0-2 /hpf (0-2) 10/04/24 01:05 Urine WBC 0-5 /hpf (0-5) 10/04/24 01:05 Ur Squamous Epith Cells 0-5 /hpf (0-5) 10/04/24 01:05 Amorphous Sediment Not Reportable 10/04/24 01:05 Urine Bacteria None seen /hpf (NONE) 10/04/24 01:05 Hyaline Casts 0.40 /lpf 10/04/24 01:05 Digoxin 1.4 ng/mL (0.6-1.2) H 10/06/24 03:53 Ethyl Alcohol < 10 mg/dL (0-10) 10/03/24 22:12 Vitals Last Vital Signs Temp 98.0 F 10/06/24 10:57 Pulse 77 10/06/24 10:57 Resp 17 10/06/24 10:57 BP 120/71 10/06/24 10:57 Pulse Ox 100 10/06/24 10:57 O2 Del Method Room Air 10/06/24 10:57 Discharge Plan Discharge Patient Disposition: Home Condition: Stable Prescriptions: New amiodarone [Pacerone] 200 mg Tablet 200 mg PO BID 30 Days Qty: 60 0RF metoprolol succinate 25 mg capsule,sprinkle,ER 24hr 25 mg PO DAILY 30 Days Qty: 30 0RF Eliquis 5 mg tablet 5 mg PO BID 30 Days Qty: 60 0RF furosemide [Lasix] 20 mg tablet 20 mg PO DAILY 14 Days Qty: 14 0RF Discontinued lisinopril 10 mg Tablet 10 mg PO DAILY Discharge Orders: Discharge Order (Routine); Ordered 10/06/24 Ordered By: Gwen Zarate Other Ambulatory Orders: MCT/Event Monitor 21 Days (Routine) Timeframe: [id number] Facility: [facility] - Location: Radiology Ordered By: Gwen Zarate Referrals: Clarence Ron MD [Referring] - 4-7 days (Francisco Javier from [facility] called regarding the new patient paperwork. Once new patient paperwork is returned and reviewed. The clinic will contact you to schedule this appointment. If you have any questions, please call ) Moises Beebe MD [Physician] - 11/26/24 1:30 pm (needs 7-10 day follow up- discussed with Dr. Beebe) Marika Galan NP [Nurse Practitioner] - 7-10 days Discharge Diet: Usual diet Discharge Activity: Resume usual activity Patient Instructions: Metoprolol (By mouth) (Lopressor, Toprol XL), Furosemide (By mouth) (Lasix), Amiodarone (By mouth) (Cordarone, Pacerone), Apixaban (By mouth) (Eliquis), Heart Failure (DC), A-fib (Atrial Fibrillation) (DC), Hypertension (DC), Opioid Safety Discharge Attestations Time Spent in Discharge Care*: greater than 30 min Quality Metrics Clinical Quality Measures [ No reported AMI, CVA or VTE this stay] Coding Level of Care Code Acute Code for [facility] Fwd Diagnoses Atrial fibrillation I48.91 Cardiac murmur R01.1 Hypertension I10 Alcohol use disorder F10.90 Tobacco use disorder F17.200 Heart failure I50.9 Smoking addiction F17.200 Alcohol use F10.90
--- NOTE | 2024-10-06 12:23 | PC.NURSE ---
Patient requested that we call her with the updated cardiology appointment.
--- NOTE | 2024-10-06 13:52 | PC.NURSE ---
[facility] scheduled patient for AT 16:00P.M. This person called patient to inform of the schedule appointment. Patient is aware.
== END 2024-10-06 12:24 | disposition home or self-care (01) | DRG 308 ==
LOC: ER 10-04 00:04 → CSU 10-04 01:29
PROVIDERS: Admitting Provider Internal Medicine; Emergency Provider Nurse Practitioner; Visit Provider Student in an Organized Health Care Education/Training Program
DX: I48.19 Other persistent atrial fibrillation (principal); I50.31 Acute diastolic (congestive) heart failure; R01.1 Cardiac murmur, unspecified; I11.0 Hypertensive heart disease with heart failure; F10.90 Alcohol use, unspecified, uncomplicated; F17.200 Nicotine dependence, unspecified, uncomplicated
CPT/HCPCS: 36415; 70450; 71045; 80048; 80053; 80162; 80307; 81001; 83735; 83880; 84100; 84443; 84484; 85025; 93005; 93306; 96365; 96366; 96372; 96375; 96376; 99285; A9270; G0378; J0283; J1160; J1650; J1940; J3490; J7040